=== PATIENT | male | born 1955 | race Caucasian/White ===

== ENCOUNTER 2018-11-21 07:46 | Day surgery (SDC) | payer OTHER, BC ==
[2018-11-14 11:12] VITALS: BMI 40.6
[2018-11-21] MEDS ORDERED: PROPOFOL 20 ML ONE ×2 (08:52)
[2018-11-21] MEDS ORDERED: LIDOCAINE HCL/PF 2% SDV 5ML VIAL ONE (08:52)
[2018-11-21 09:37] VITALS: TEMP 98.2
--- NOTE | 2018-11-22 15:49 | PATH ---
Surgical Pathology Report Patient Name: ARMANDO LIZARRAGA [facility]. Rec. #: [id number] /Age/Gender: 1955 (Age: 63) / M Account: [id number] Location: [facility] Taken: 11/21/2018 Received: 11/21/2018 Reported: 11/22/2018 Physicians: Chevy Chahal M.D. Specimen(s) Received A: CECAL POLYP B: DISTAL LEFT COLON POLYP Clinical History Rule out cancer Postoperative diagnosis: Polyps, diverticulosis Final Diagnosis A. CECUM, POLYP, BIOPSY: COLONIC MUCOSA SHOWING MILD SURFACE HYPERPLASTIC CHANGE. B. DISTAL LEFT COLON, POLYP, BIOPSY: TUBULAR ADENOMA. Electronically Signed Tonia Weiner M.D. Gross Description A. Received in formalin, labeled "cecal polyp" are 2 chan, irregular portions of soft tissue measuring 0.4 and 0.8 cm. in greatest dimension. The specimens are submitted in toto in one cassette. B. Received in formalin, labeled "distal left colon polyp" are 2 chan, irregular portions of soft tissue measuring 0.3 and 0.6 cm. in greatest dimension. The specimens are submitted in toto in one cassette. DL/11/21/2018 saudi11/21/2018
[2018-11-25 09:06] VITALS: BP 128/64; PULSE 76
== END 2018-11-21 10:10 | disposition home or self-care (01) ==
LOC: FASU-ENDO 07:46
PROVIDERS: ATTEND Internal Medicine Gastroenterology
PROC: 0DBN8ZX Excision of Sigmoid Colon, Via Natural or Artificial Opening Endoscopic, Diagnostic (ICD-10-PCS; 2018-11-21)
PROC: 0DBH8ZX Excision of Cecum, Via Natural or Artificial Opening Endoscopic, Diagnostic (ICD-10-PCS; principal; 2018-11-21 09:04)
DX: Z86.010 Personal history of colon polyps (principal); K57.30 Diverticulosis of large intestine without perforation or abscess without bleeding; D12.0 Benign neoplasm of cecum; D12.4 Benign neoplasm of descending colon
CPT/HCPCS: 88305-TC